=== PATIENT | female | born 1930 | race Caucasian/White ===

== ENCOUNTER 2016-10-03 10:19 | Emergency (ER) | payer MEDICARE, MEDICAID ==
--- NOTE | 2016-10-03 10:40 | ER Document Report ---
ED General - General Stated Complaint: LOW HEART RATE Time Seen by Provider: 10/03/16 10:26 Mode of Arrival: Stretcher Information source: Patient TRAVEL OUTSIDE OF THE [place] IN LAST 30 DAYS: No - HPI Patient complains to provider of: Insect bite, feeling disoriented Onset: This morning Onset/Duration: Sudden Quality of pain: No pain Associated symptoms: None Exacerbated by: Denies Relieved by: Denies Similar symptoms previously: No Recently seen / treated by doctor: Yes Notes: Patient is an 86-year-old female sent from local urgent care center for complaints of spider bite to her left forearm, apparently they did an EKG at the urgent care center and found her to be in sinus bradycardia at a rate of 56 so they sent her to the emergency room, patient reports early this morning she felt something crawling on her arm, she squashed what appeared to be a spider, possibly a black spider, she had some pain in the area of first but that has since resolved, in the emergency room she states that she "feels lost", or disoriented, she is slightly tearful, stating that she believes this is probably because of the events of the morning and that she misses her dog who is home alone, her 11 years ago and she lives at home alone , she denies any chest pain or shortness of breath at present time, no nausea, vomiting or diarrhea, she does report a recent urinary tract infection which she completed a course of Keflex for, and she did not take her blood pressure medications or other medications this morning prior to coming to urgent care center - Related Data Allergies/Adverse Reactions: latex [Latex] Allergy (Verified 06/10/15 17:06) Generalized rash Sulfa (Sulfonamide Antibiotics) Allergy (Verified 06/10/15 17:06) Generalized rash Past Medical History - General Information source: Patient - Social History Smoking Status: Never Smoker Family History: Reviewed & Not Pertinent - Past Medical History Cardiac Medical History: Reports: Hx Hypercholesterolemia, Hx Hypertension Denies: Hx Heart Attack Pulmonary Medical History: Denies: Hx Asthma Neurological Medical History: Denies: Hx Cerebrovascular Accident, Hx Seizures GI Medical History: Denies: Hx Hepatitis, Hx Hiatal Hernia, Hx Ulcer Musculoskeltal Medical History: Reports Hx Arthritis Infectious Medical History: Denies: Hx Hepatitis Past Surgical History: Reports: Hx Cholecystectomy, Hx Hysterectomy. Denies: Hx Mastectomy, Hx Open Heart Surgery, Hx Pacemaker Review of Systems - Review of Systems Constitutional: No symptoms reported EENT: No symptoms reported Cardiovascular: No symptoms reported Respiratory: No symptoms reported Gastrointestinal: No symptoms reported Genitourinary: No symptoms reported Female Genitourinary: No symptoms reported Musculoskeletal: No symptoms reported Skin: See HPI Hematologic/Lymphatic: No symptoms reported Neurological/Psychological: See HPI -: Yes All other systems reviewed and negative Physical Exam - Vital signs Vitals: Resp Pulse Ox 12 98 10/03/16 10:36 10/03/16 10:36 Interpretation: Normal - General General appearance: Appears well, Alert - HEENT Head: Normocephalic, Atraumatic Eyes: Normal Pupils: PERRL - Respiratory Respiratory status: No respiratory distress Chest status: Nontender Breath sounds: Normal Chest palpation: Normal - Cardiovascular Rhythm: Regular, Bradycardia Heart sounds: Normal auscultation Murmur: No - Abdominal Inspection: Normal Distension: No distension Bowel sounds: Normal Tenderness: Nontender Organomegaly: No organomegaly - Back Back: Normal, Nontender - Extremities General upper extremity: Normal ROM, Normal temperature General lower extremity: Normal inspection, Nontender, Normal color, Normal ROM , Normal temperature, Normal weight bearing. No: Anna's sign Forearm: Other - 3 cm area of erythema to the dorsal surface of the mid left forearm, no tenderness, no drainage or bleeding, distal sensation and motor is intact with 2+ radial pulses - Neurological Neuro grossly intact: Yes Cognition: Normal Orientation: AAOx4 [place] Coma Scale Eye Opening: Spontaneous [place] Coma Scale Verbal: Oriented Srik[place] Coma Scale Motor: Obeys Commands Srikanth Coma Scale Total: 15 Speech: Normal Motor strength normal: LUE, RUE, LLE, RLE Sensory: Normal - Psychological Associated symptoms: Normal affect, Normal mood - Skin Skin Temperature: Warm Skin Moisture: Dry Skin Color: Normal Course - Re-evaluation Re-evalutation: 10/03/16 10:40 EMS reports that urgent care center sent patient to the emergency room because her EKG was consistent with sinus bradycardia, I have confirmed that her EKG that was performed at urgent care is sinus bradycardia at a rate of 56, however I reviewed records of patient at this facility back to 2012 and she is always in sinus bradycardia at a rate in the 50s, also she takes carvedilol 12.5 mg for blood pressure control 10/03/16 13:15 Patient resting comfortably, reports feeling much better at time of reevaluation , labs were discussed at patient's bedside which are unremarkable, she will be discharged with instructions for follow-up and advised to return if any additional concerns, patient acknowledges understanding and agreement with this plan - Vital Signs Vital signs: Temp Pulse Resp BP Pulse Ox 97.8 F 14 186/65 H 100 10/03/16 11:30 10/03/16 12:05 10/03/16 12:05 10/03/16 12:21 - Laboratory Result Diagrams: 10/03/16 11:55 10/03/16 11:55 Laboratory results interpreted by me: 10/03/16 10/03/16 11:55 12:05 RBC 3.13 L Hgb 10.3 L Hct 30.4 L Ur Leukocyte Esterase TRACE H - EKG Interpretation by Vt EKG shows normal: Sinus rhythm Rate: Bradycardia Discharge - Discharge Clinical Impression: Insect bite of left upper extremity Qualifiers: Encounter type: initial encounter Qualified Code(s): S40.862A - Insect bite ( nonvenomous) of left upper arm, initial encounter; W57.XXXA - Bitten or stung by nonvenomous insect and other nonvenomous arthropods, initial encounter Condition: Stable Disposition: HOME, SELF-CARE Instructions: Insect Bites ([facility]) Additional Instructions: Follow up with your primary care provider in one to 2 days. Return to the emergency room immediately if symptoms worsen or any additional concerns.
[2016-10-03 12:07] LABS: ABSOLUTE EOSINOPHILS # (AUTO) 0.3 10^3/uL (0.0-0.6); ABSOLUTE LYMPHOCYTES (AUTO) 2.2 10^3/uL (0.5-4.7); ABSOLUTE MONOCYTES (AUTO) 0.6 10^3/uL (0.1-1.4); ABSOLUTE NEUT (AUTO) 2.5 10^3/uL (1.7-8.2); BASOPHILS % (AUTO) 0.2 % (0-2); EOSINOPHILS % (AUTO) 5.2 % (0-6); HEMATOCRIT 30.4 % (36.0-47.0); HEMOGLOBIN 10.3 g/dL (12.0-15.5); HGB HCT DIFFERENCE 0.5; MEAN CORPUSCULAR HEMOGLOBIN 32.9 pg (27.0-33.4); MEAN CORPUSCULAR HGB CONC 33.8 g/dL (32.0-36.0); MEAN CORPUSCULAR VOLUME 97 fl (80-97); MONOCYTES % (AUTO) 10.5 % (3-13); RED BLOOD COUNT 3.13 10^6/uL (3.72-5.28); RED CELL DISTRIBUTION WIDTH 13.7 % (11.5-14.0); SEGMENTED NEUTROPHILS % (AUTO) 45.1 % (42-78); WHITE BLOOD COUNT 5.5 10^3/uL (4.0-10.5)
[2016-10-03 12:22] LABS: ALANINE AMINOTRANSFERASE 26 U/L (9-52); ALBUMIN 3.9 g/dL (3.5-5.0); ALKALINE PHOSPHATASE 62 U/L (38-126); ANION GAP 9 (5-19); ASPARTATE AMINO TRANSFERASE 20 U/L (14-36); BILIRUBIN,DIRECT 0.3 mg/dL (0.0-0.4); BILIRUBIN,TOTAL 0.6 mg/dL (0.2-1.3); BLOOD UREA NITROGEN 20 mg/dL (7-20); CALCIUM 9.1 mg/dL (8.4-10.2); CARBON DIOXIDE 26 mmol/L (22-30); CHLORIDE 105 mmol/L (98-107); CREATINE KINASE 41 U/L (30-135); CREATININE RESULT 0.87 mg/dL (0.52-1.25); GLUCOSE 96 mg/dL (75-110); POTASSIUM 4.6 mmol/L (3.6-5.0); SODIUM 139.7 mmol/L (137-145); TOTAL PROTEIN 6.9 g/dL (6.3-8.2)
[2016-10-03 12:32] LABS: CREATINE KINASE MB 0.48 ng/mL (<4.55)
[2016-10-03 12:36] LABS: TROPONIN I < 0.012 ng/mL
[2016-10-03 13:10] LABS: APPEARANCE,URINE CLEAR; BILIRUBIN,URINE NEGATIVE (NEGATIVE); GLUCOSE, URINE NEGATIVE (NEGATIVE); KETONES,URINE NEGATIVE (NEGATIVE); LEUKOCYTE ESTERASE,URINE TRACE (NEGATIVE); NITRITE,URINE NEGATIVE (NEGATIVE); PROTEIN,URINE NEGATIVE (NEGATIVE); URINE SPECIFIC GRAVITY 1.008; UROBILINOGEN,URINE NEGATIVE mg/dL (<2.0)
[2016-10-03 13:50] VITALS: BP 156/73
--- NOTE | 2016-10-03 16:21 | EKG REPORT ---
SEVERITY:- NORMAL ECG - SINUS RHYTHM : Confirmed by: Niki Watts MD 03-Oct-2016 16:21:21
== END 2016-10-03 13:49 | disposition home or self-care (01) ==
LOC: ER 10:19
DX: S40.862A Insect bite (nonvenomous) of left upper arm, initial encounter (principal); W57.XXXA Bitten or stung by nonvenomous insect and other nonvenomous arthropods, initial encounter; R00.1 Bradycardia, unspecified; I10 Essential (primary) hypertension; Z79.899 Other long term (current) drug therapy; Z87.440 Personal history of urinary (tract) infections; Z91.040 Latex allergy status; Z88.2 Allergy status to sulfonamides
CPT/HCPCS: 36415; 80053; 81001; 82550; 82553; 84484; 85025; 87086; 93005; 93010; 99285

== ENCOUNTER 2017-11-22 10:45 | Emergency (ER) | payer MEDICARE, MEDICAID ==
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
[2017-11-22 11:17] VITALS: BP 160/68
--- NOTE | 2017-11-22 11:23 | RADIOLOGY REPORT (SQ) ---
EXAM DESCRIPTION: WRIST RIGHT 3 VIEWS COMPLETED DATE/TIME: 11/22/2017 11:07 am REASON FOR STUDY: deformity COMPARISON: None. NUMBER OF VIEWS: Three views. TECHNIQUE: AP, lateral, and oblique radiographic images acquired of the right wrist. LIMITATIONS: None. FINDINGS: MINERALIZATION: Osteopenia. BONES: Impacted fracture of the distal radius with dorsal tilt of the distal fragment. Intra-articul ar extension. SOFT TISSUES: No soft tissue swelling. No foreign body. OTHER: No other significant finding. IMPRESSION: Impacted fracture of the distal radius with dorsal tilt of the distal fragment. TECHNICAL DOCUMENTATION: JOB ID: [id number] [employer]- All Rights Reserved Reading location - IP/workstation name: [email or web address]
[2017-11-22] MEDS ORDERED: HYDROCODONE/ACETAMINOPHEN 5-325 MG (6 TAB/ER DISP) PO PRN (11:34)
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
== END 2017-11-22 12:16 | disposition home or self-care (01) ==
LOC: ER 10:45
DX: S62.101A Fracture of unspecified carpal bone, right wrist, initial encounter for closed fracture (principal); X37.0XXA Hurricane, initial encounter; W23.0XXA Caught, crushed, jammed, or pinched between moving objects, initial encounter; Y93.89 Activity, other specified; Y92.009 Unspecified place in unspecified non-institutional (private) residence as the place of occurrence of the external cause; I10 Essential (primary) hypertension; Z91.040 Latex allergy status; Z88.2 Allergy status to sulfonamides
CPT/HCPCS: 99283